=== PATIENT | male | born 1995 | race Caucasian/White ===

== ENCOUNTER 2024-06-19 15:39 | Emergency (ER) | payer MEDICAID, SELFPAY ==
--- NOTE | 2024-06-19 15:54 | XR_ITS ---
PROCEDURE INFORMATION: Exam: XR Right Hand Exam date and time: 06/19/2024 3:53 PM Age: 29 years old Clinical indication: Injury or trauma; Laceration; Hand; Right; Additional info: Smashed/lac TECHNIQUE: Imaging protocol: Radiologic exam of the right hand. Views: 3 or more views. COMPARISON: No relevant prior studies available. FINDINGS: Bones/joints: Osseous structures are intact. No fracture or malalignment. Visualized joint surfaces are preserved. Soft tissues: Unremarkable. IMPRESSION: Negative exam. No acute bony abnormalities.
[2024-06-19 16:48] VITALS: BP 138/90; PULSE 72; RESP 20; TEMP 36.8; O2SAT 98; BMI 32.6
[2024-06-19] MEDS: TET/DIPHTH/PERT-ADULT 0.5ML SYRINGE 0.5 ML IM (17:00)
--- NOTE | 2024-06-19 18:05 | ED_ITS ---
<Statement entered by Rosalina Porter MD - 06/19/24 22:01> I was consulted by the CHELSY, and we discussed the complexity of the problems being addressed. I approved the treatment and management plan for this patient's care in the emergency department, thus performing a substantive portion of the medical decision making. Rosalina Porter MD, IZABELLA, FACEP Discharge Plan Disposition Patient Disposition: Home, Self-Care Condition: Good Prescriptions Prescriptions: New cephalexin 500 mg capsule 500 mg PO Q12H 5 Days Qty: 10 0RF No Action prednisone 10 mg tablets,dose pack 10 mg PO DIRECTED Patient Comments: FOLLOW PACKAGE DIRECTIONS Referrals Follow up/Referrals: Jam Miller MD [Primary Care Provider] - See instructions Activity Restrictions/Add. Instructions Additional Instructions/Restrictions: Keep area clean and dry. Wash with soap and water twice a day and put antibiotic ointment over site. Keep covered with a bandage. Sutures will need to be removed in 14 days. Return to [facility] or go to Primary care provider. Watch for swelling, warmth, and purulent drainage. If these occur then return to the [facility], primary care provider, or the ER. Clinical Impressions Clinical Impression: Laceration of hand, right Instructions Patient Instructions: DI for Laceration Repair -- Finger Print Language Print Language: Occitan Discharge ED Provider: Radha Duran [facility] HPI General Stated complaint: AO 06/19/24 1515 laceration right hand Mode of Arrival: Ambulatory Source of Information: Patient Time Seen by Provider: 06/19/24 17:20 Description of Symptoms (Recalled from Triage Doc. by RN): LAC TO RIGHT HAND HEENT Symptoms (Recalled from RN notes): No Resp Symptoms (Recalled from RN notes): No Skin Symptoms (Recalled from RN notes): Yes MS Symptoms (Recalled from RN notes): No Functional Status (Recalled from RN notes): WNL History of Present Illness Provider Complaint: Pt states that while at work the tongue of the equipment retracted and his finger got caught causing a large laceration on his right pinky. Related Data Home Medications ?Medication ?Instructions ?Recorded ?Confirmed prednisone 10 mg tablets in a dose 10 mg PO DIRECTED 06/19/24 06/19/24 pack Previous Rx's ?Medication ?Instructions ?Recorded cephalexin 500 mg capsule 500 mg PO Q12H 5 days #10 caps 06/19/24 Allergies Allergy/AdvReac Type Severity Reaction Status Date / Time PENICILLIN Allergy Unknown Uncoded 09/02/17 15:00 Worker's Comp Is this a Worker's Comp case?: No [facility] Disclaimer: The information contained in this section may have been updated after the patient was seen, as this information can be updated by other users. Social History Smoking Status: Never smoker alcohol intake: current alcohol intake frequency: holidays/special occasions only current occupational status: employed Travel in the last 8 weeks: Inside the [place] ROS Obtained: Yes All systems reviewed & no additional complaints except as documented Constitutional Constitutional: Reports system reviewed and no additional complaints, except as documented Eyes Eyes: Reports system reviewed and no additional complaints, except as documented ENT Ears, Nose, Mouth, and Throat: Reports system reviewed and no additional complaints, except as documented Cardiovascular Cardiovascular: Reports system reviewed and no additional complaints, except as documented Respiratory Respiratory: Reports system reviewed and no additional complaints, except as documented Gastrointestinal Gastrointestingal: Reports system reviewed and no additional complaints, except as documented Genitourinary Male Genitourinary: Reports system reviewed and no additional complaints, except as documented Musculoskeletal Musculoskeletal: Reports system reviewed and no additional complaints, except as documented Integumentary/Breasts Skin/Breast: Reports system reviewed and no additional complaints, except as documented and Reports wounds Neurologic Neurologic: Reports system reviewed and no additional complaints, except as documented Endocrine Endocrine: Reports system reviewed and no additional complaints, except as documented Hematologic/Lymphatic Henatologic/Lymphatic: Reports system reviewed and no additional complaints, except as documented Allergic/Immunologic Allergic/Immunologic: Reports system reviewed and no additional complaints, except as documented Physical Exam General General appearance: alert and in no apparent distress Head Head exam: atraumatic and normocephalic Eye Eye exam: Present normal appearance ENT ENT exam: Present normal exam, normal oropharynx and mucous membranes moist Neck Neck exam: Present normal inspection Chest Chest inspection: Present normal inspection and symmetric chest wall rise Respiratory Respiratory exam: Present normal lung sounds bilaterally Cardiovascular Cardiovascular exam: Present regular rate, normal rhythm and normal heart sounds Abdominal Exam Abdominal exam: Present soft Expanded Upper Extremity Exam Right: Shoulder exam: Present normal inspection Arm exam: Present normal inspection Elbow exam: Present normal inspection Forearm/Wrist exam: Present normal inspection Hand exam: Present laceration Hand L/R front image: 2 1. laceration Vascular exam: Normal capillary refill, radial pulse and ulnar pulse Comment: Pt began to bleed and Dr. Porter came from the ER and sutured pt with 3.0 Nylon. Pt received 10 sutures. Prior to closing the pt had the area cleaned with Hibiclens and 4 ml of lidocaine 2% injected along suture line. Pt tolerated procedure well. Back Exam Back exam: Present normal inspection Neurological Exam Neurological exam: Present alert and oriented X3 Psychiatric Psychiatric exam: Present normal affect and normal mood Skin Skin exam: Present warm, dry and other Expanded Skin Exam Type of lesion: Present laceration Distribution: RUE Lymphatic Lymphatic Findings: no adenopathy Medical Decision Making Medical Records Screening: Per USPSTF and CDC recommendations, given the prevalence of disease in our region, it is our hospital?s policy to screen for HIV and viral Hepatitis for all patients aged 18 and over and those with ongoing risk factors. Rai Inquiry Pt receiving controlled substance: No Rai was queried for this patient: No Vital Signs: 06/19/24 16:48 Temperature 98.2 F Temperature Source Oral Pulse Rate [Left Radial] 72 Respiratory Rate 20 Blood Pressure [Left Arm] 138/90 Blood Pressure Mean [Left Arm] 106 02 Sat by Pulse Oximetry 98 Orders (Tests/Meds): ED MEDICATIONS Generic Name Dose Route Start Last Admin Trade Name Freq PRN Reason Stop Dose Admin Tetanus/Reduced Diphtheria/Acell Pertussis 0.5 ml 06/19/24 16:57 06/19/24 17:00 Tet/Diphth/Pert-Adult 0.5ml Syringe IM 06/19/24 16:58 0.5 ml .ONCE ONE Administration ORDERS Category Date Time Status Hand XR right minimum 3 views [XR hand RT min 3V] Stat Exams 06/19/24 15:54 Completed Radiology Data #1: Image(s): Hand Image Reviewed: Yes I reviewed the patient's radiology results and Yes I have reviewed radiologist's interpretation FINDINGS: Bones/joints: Osseous structures are intact. No fracture or malalignment. Visualized joint surfaces are preserved. Soft tissues: Unremarkable. IMPRESSION: Negative exam. No acute bony abnormalities. Procedures Laceration Laceration 1: Site: hand Side (If applicable): right Description: linear Depth: simple, single layer Local Anesthetic: lidocaine 2% Amount of anesthesia used (mL): 4 Pre-repair: irrigated extensively Skin layer closed with: nylon Size (cm): 3-0 Number of sutures: 10 Technique: simple, interrupted
[2024-06-19 18:29] VITALS: BP 138/90; PULSE 72; RESP 20; TEMP 36.8
== END 2024-06-19 18:29 | disposition home or self-care (01) ==
PROVIDERS: Emergency Provider Nurse Practitioner Family; PCP Family Medicine
DX: S61.212A Laceration without foreign body of right middle finger without damage to nail, initial encounter (principal); W26.8XXA Contact with other sharp object(s), not elsewhere classified, initial encounter
CPT/HCPCS: 12001; 73130; 90471; 90715; 99214; G0382

== ENCOUNTER 2024-09-14 08:00 | Outpatient (RCR) | payer MEDICAID, SELFPAY | END 2024-09-14 23:59 | disposition home or self-care (01) | LOC: OT 08:00 | PROVIDERS: PCP Family Medicine; Visit Provider Plastic Surgery | DX: M24.541 Contracture, right hand (principal); L90.5 Scar conditions and fibrosis of skin | CPT/HCPCS: 97014; 97035; 97110; 97140; 97165; G0283 ==